=== PATIENT | male | born 1975 | race Caucasian/White ===

== ENCOUNTER 2018-03-01 08:17 | Emergency (ER) | payer OTHER ==
[~2018-03-01] VITALS: Ht 175.3 cm; Wt 161.3 kg
[~2018-03-01 08:17] MED LIST: NO HOME MEDS
[2018-03-01 08:19] VITALS: BP 147/84
[2018-03-01] MEDS ORDERED: HYDR-565 PO (08:38)
== END 2018-03-01 11:45 | disposition home or self-care (01) ==
LOC: ER 08:17
DX: M25.561 Pain in right knee (principal); Z79.899 Other long term (current) drug therapy; X50.1XXA Overexertion from prolonged static or awkward postures, initial encounter; Y93.89 Activity, other specified; Y92.59 Other trade areas as the place of occurrence of the external cause; Y99.8 Other external cause status
CPT/HCPCS: 29505; 73564; 73700; 99284

== ENCOUNTER 2018-03-10 14:07 | Outpatient (CLI) | payer OTHER ==
[2018-03-10 14:20] VITALS: BP 141/68
== END 2018-03-10 15:12 | disposition home or self-care (01) ==
LOC: ORTHO 14:07
PROVIDERS: ATTEND Nurse Practitioner Family
DX: M25.561 Pain in right knee (principal); F17.200 Nicotine dependence, unspecified, uncomplicated
CPT/HCPCS: 99213

== ENCOUNTER 2019-09-09 07:55 | Outpatient (CLI) | payer OTHER ==
[2019-09-09 08:53] LABS: CLARITY,URINE CLEAR (Clear); COLOR,URINE YELLOW (Yellow); GLUCOSE, URINE NEGATIVE (Neg); KETONES,URINE NEGATIVE (Neg); LEUKOCYTE ESTERASE ,URINE NEGATIVE (Neg); NITRITES, URINE NEGATIVE (Neg); OCCULT BLOOD,URINE NEGATIVE (Neg); PROTEIN,URINE NEGATIVE (Neg); UROBILINOGEN,URINE 0.2 E.U/dL (0.2-1.0)
[2019-09-09 08:54] LABS: UA COLLECTION TYPE CLN CATCH MIDSTREAM
[2019-09-09 09:00] LABS: BASOPHILS % (AUTO) 0.5 % (0-1); EOSINOPHILS # (AUTO) 0.1 X10'3 (0-0.9); EOSINOPHILS % (AUTO) 1.6 % (0-6); HEMATOCRIT 42.5 % (42.0-52.0); HEMOGLOBIN 14.8 g/dl (14.0-17.9); LYMPHOCYTES # (AUTO) 1.6 X10'3 (1.1-4.8); LYMPHOCYTES % (AUTO) 28.7 % (21-51); MEAN CORPUSCULAR HEMOGLOBIN 32.7 PG (27.0-31.0); MEAN CORPUSCULAR HGB CONC 34.7 g/dL (33.0-36.5); MEAN CORPUSCULAR VOLUME 94.1 FL (78-98); MEAN PLATELET VOLUME 6.9 FL (7.4-10.4); MONOCYTES # (AUTO) 0.6 X10'3 (0-0.9); MONOCYTES % (AUTO) 11.5 % (2-12); NEUTROPHILS # (AUTO) 3.1 X10'3 (1.8-7.7); NEUTROPHILS % (AUTO) 57.7 % (42-75); PLATELET COUNT 224 X10'3 (140-440); RED BLOOD COUNT 4.52 X10'6 (4.70-6.10); RED CELL DISTRIBUTION WIDTH 12.8 % (11.5-14.5); WHITE BLOOD COUNT 5.4 X10'3 (4.5-11.0)
[2019-09-09 09:19] LABS: ALANINE AMINOTRANSFERASE 34 U/L (12-78); ALBUMIN 3.9 G/DL (3.4-5.0); ALBUMIN/GLOBULIN RATIO 1.1 (1.1-1.5); ALKALINE PHOSPHATASE 76 IU/L (46-116); ANION GAP 3 (8-16); ASPARTATE AMINO TRANSFERASE 26 U/L (10-37); BILIRUBIN,TOTAL 0.7 MG/DL (0.1-1.0); BLOOD UREA NITROGEN 19 MG/DL (7-18); BUN/CREATININE RATIO 20.4 (5.4-32.0); CALCIUM 9.2 MG/DL (8.5-10.1); CHLORIDE 107 MMOL/L (99-107); CHOLESTEROL 147 MG/DL (0-200); CREATININE 0.93 MG/DL (0.60-1.10); GLUCOSE 85 MG/DL (70-104); HDL CHOLESTEROL 49 MG/DL (35-60); LDL CHOLESTEROL 91 MG/DL (50-100); POTASSIUM 4.6 MMOL/L (3.5-5.1); SODIUM 144 MMOL/L (135-145); TOTAL CARBON DIOXIDE 33.9 MMOL/L (24-32); TOTAL PROTEIN 7.4 G/DL (6.4-8.2); TRIGLYCERIDES 48 MG/DL (20-135); eGFR 89 ML/MIN
== END 2019-09-09 23:59 | disposition home or self-care (01) ==
LOC: LAB 07:55
PROVIDERS: ATTEND Family Medicine
DX: Z00.00 Encounter for general adult medical examination without abnormal findings (principal)
CPT/HCPCS: 36415; 80053; 80061; 81003; 84439; 84443; 85025

== ENCOUNTER 2019-09-13 15:48 | Outpatient (CLI) | payer OTHER | END 2019-09-13 23:59 | disposition home or self-care (01) | LOC: RAD 15:48 | PROVIDERS: ATTEND Family Medicine | DX: S83.282A Other tear of lateral meniscus, current injury, left knee, initial encounter (principal); M17.12 Unilateral primary osteoarthritis, left knee; M25.462 Effusion, left knee; X58.XXXA Exposure to other specified factors, initial encounter; Y93.89 Activity, other specified; Y92.89 Other specified places as the place of occurrence of the external cause; Y99.8 Other external cause status | CPT/HCPCS: 73721 ==

== ENCOUNTER 2020-01-04 08:57 | Outpatient (CLI) | payer OTHER | END 2020-01-04 23:59 | disposition home or self-care (01) | LOC: RAD 08:57 | PROVIDERS: ATTEND Orthopaedic Surgery | DX: M17.11 Unilateral primary osteoarthritis, right knee (principal); M25.461 Effusion, right knee | CPT/HCPCS: 73721 ==

== ENCOUNTER 2020-03-27 09:25 | Observation (INO) | payer BC ==
[2020-03-20 17:04] LABS: BASOPHILS % (AUTO) 0.8 % (0-1); EOSINOPHILS # (AUTO) 0.1 X10'3 (0-0.9); EOSINOPHILS % (AUTO) 1.2 % (0-6); LYMPHOCYTES # (AUTO) 1.5 X10'3 (1.1-4.8); LYMPHOCYTES % (AUTO) 32.7 % (21-51); MEAN CORPUSCULAR HEMOGLOBIN 32.9 PG (27.0-31.0); MEAN CORPUSCULAR VOLUME 96.7 FL (78-98); MEAN PLATELET VOLUME 7.4 FL (7.4-10.4); MONOCYTES # (AUTO) 0.5 X10'3 (0-0.9); MONOCYTES % (AUTO) 11.4 % (2-12); NEUTROPHILS # (AUTO) 2.5 X10'3 (1.8-7.7); NEUTROPHILS % (AUTO) 53.9 % (42-75); PRE OP HEMATOCRIT 41.8 % (42.0-52.0); PRE OP HEMOGLOBIN 14.2 g/dL (14.0-17.9); PRE OP PLATELET COUNT 179 X10'3 (140-440); RED BLOOD COUNT 4.33 X10'6 (4.70-6.10)
[2020-03-20 17:14] LABS: PRE OP INR 1.1 INR
[2020-03-20 17:16] LABS: ALBUMIN 3.9 G/DL (3.4-5.0); ALBUMIN/GLOBULIN RATIO 1.2 (1.1-1.5); ALKALINE PHOSPHATASE 81 IU/L (46-116); BLOOD UREA NITROGEN 28 MG/DL (7-18); BUN/CREATININE RATIO 24.3 (5.4-32.0); CALCIUM 8.5 MG/DL (8.5-10.1); CHLORIDE 106 MMOL/L (99-107); CREATININE 1.15 MG/DL (0.60-1.10); PRE OP ALT 73 U/L (30-65); PRE OP ANION GAP 7 (8-16); PRE OP AST 39 U/L (10-37); PRE OP BILIRUB, TOTAL 0.6 MG/DL (0.0-1.0); PRE OP GLUCOSE 82 MG/DL (70-104); PRE OP POTASSIUM 3.8 MMOL/L (3.4-5.1); PRE OP SODIUM 141 MMOL/L (135-145); TOTAL CARBON DIOXIDE 27.9 MMOL/L (24-32); TOTAL PROTEIN 7.2 G/DL (6.4-8.2); eGFR 69 ML/MIN
[2020-03-27] VITALS (17 sets, daily range): BP systolic 89–139; BP diastolic 38–59
[~2020-03-27] VITALS: Ht 177.8 cm; Wt 101.6 kg
[~2020-03-27 09:25] MED LIST changes: +HYDROmorphone 1 mg/ml syringe IV PRN; +HYDROmorphone inj. 0.5 MG/0.5 ML DISP.SYRIN IV PRN; +MESSAGE TO NURSING IV ONE; +acetaminophen 325mg tablet PO ONE; +acetaminophen 325mg tablet PO PRN; +bisacodyl 10mg suppository rectal RC PRN; +ceFAZolin 2gm in dextrose, iso 50 ML IV ONE; +celeCOXIB 100mg capsule PO ONE; +diphenhydrAMINE 25mg capsule PO PRN; +famotidine 20mg tablet PO ONE; +gabapentin 300mg capsule PO ONE; +magnesium hydroxide 30ml (MOM) UD suspension PO PRN; +metoclopramide 5 mg/ml inj IV ONE; +ondansetron/PF 4mg/2ml inj IV PRN; +oxyCODONE SR 10mg (sust. release) tab -2 tabs (20mg) PO ONE; +oxyCODONE/APAP 10/325mg tablet PO PRN; +ringers solution, lacted 1,000 ML IV SCH; +tranexamic acid 1gm/0.7% sal. 100 ML IV ONE; +vancomycin 1,500 MG in NS 300ml IV soln IV ONE
[2020-03-27] MEDS ORDERED: epiNEPHrine 1 mg/ml inj ONE (10:53)
[2020-03-27] MEDS ORDERED: cloNIDine hcl/PF 100mcg/ml inj ONE (10:53)
[2020-03-27] MEDS ORDERED: ketorolac trometh. 30mg/ml inj. ONE (10:53)
[2020-03-27] MEDS ORDERED: ROPIVAcaine 0.5% (5mg/ml) 30ml vial ONE ×2 (10:54→12:25)
[2020-03-27] MEDS ORDERED: vancomycin 1,000mg inj ONE (10:54)
[2020-03-27] MEDS ORDERED: fentaNYL/PF 50MCG/1 ML 2ML syringe ONE (11:44)
[2020-03-27] MEDS ORDERED: MIDAZolam 5mg/5ml vial ONE ×2 (11:45→12:16)
[2020-03-27] MEDS ORDERED: fentaNYL/PF 50MCG/1 ML 2ML syringe IV PRN ×2 (12:30)
[2020-03-27] MEDS ORDERED: ringers solution, lacted 1,000 ML IV SCH (12:30)
[2020-03-27] MEDS ORDERED: ondansetron/PF 4mg/2ml inj IV PRN (12:30)
[2020-03-27] MEDS ORDERED: labetalol 20mg/4ml (5mg/ml) syringe IV PRN (12:30)
[2020-03-27] MEDS ORDERED: morphine 4 MG/ML inj SYRINge IV PRN (12:30)
[2020-03-27] MEDS ORDERED: hydrALAZINE 20mg/ml inj. IV PRN (12:30)
[2020-03-27] MEDS ORDERED: ROPIVAcaine 0.2% (10 MG/5 ML) BOLUS INJECTION ADDCANAL PRN (12:30)
[2020-03-27] MEDS ORDERED: ROPIVAcaine 0.2%/PF PUMP/bolus 550 ML ADDCANAL SCH (12:30)
[2020-03-27] MEDS ORDERED: morphine 2 MG/ML inj. syringe IV PRN (12:30)
--- NOTE | 2020-03-27 15:20 | NUR ---
TRANSFERRED VIA BED WITH OHTF ACCOMPANIED BY MYSELF, REPORT GIVEN. PT AWAKE AND ALERT AND DENIES PAIN AT THIS TIME. L HIP CHITO DRESSING CDI, HIP WRAP, POWDER PACK AND KNEE IMMOBILIZER ON. SPINAL SENSATION AT L2. 18 GAUGE PIV R WRIST PATENT AND RUNNING LR AT 100 ML/HR. SKIN PINK AND WARM, VSS, GOOD CAP REFILL, PERIPHERAL PULSES PRESENT, SCDS ON, RESTING COMFORTABLY. LEFT IN CARE OF DEREJE LEWIS
[2020-03-27] MEDS ORDERED: cefazolin/dext.iso 2gm/50ml 50 ML IV SCH (16:00)
[2020-03-27] MEDS: potassium cl 20mEq in 1/2 NS 1,000 ML IV SCH ×3 (16:55→23:13)
[2020-03-27] MEDS ORDERED: tranexamic acid 1gm/0.7% sal. 100 ML IV ONE (17:00)
--- NOTE | 2020-03-27 18:25 | NUR ---
Patient in room [facility]015. I have received report from DEBBIE Sultana and had the opportunity to ask questions and assume patient care.
[2020-03-27] MEDS: gabapentin 300mg capsule PO SCH (20:06)
[2020-03-27] MEDS: ascorbic acid 500mg tablet PO SCH (20:07)
[2020-03-27] MEDS: cefazolin/dext.iso 2gm/50ml 50 ML IV SCH (20:42)
[2020-03-27] MEDS ORDERED: sennosides 8.6mg tablet PO SCH (21:00)
[2020-03-27] MEDS ORDERED: VANCOMYCIN 1,500MG inj. 1,500 MG in normal saline 500ml IV soln 300 ML IV SCH (22:00)
[2020-03-28 02:00] VITALS: BP 101/49
[2020-03-28] MEDS: potassium cl 20mEq in 1/2 NS 1,000 ML IV SCH (04:48)
[2020-03-28] MEDS: cefazolin/dext.iso 2gm/50ml 50 ML IV SCH (04:49)
[2020-03-28 06:00] VITALS: BP 105/54
--- NOTE | 2020-03-28 06:24 | NUR ---
Problems reprioritized. Patient report given, questions answered & plan of care reviewed with DEBBIE Juan.
[2020-03-28 06:56] LABS: BASOPHILS % (AUTO) 0.4 % (0-1); EOSINOPHILS % (AUTO) 0.3 % (0-6); HEMATOCRIT 37.7 % (42.0-52.0); HEMOGLOBIN 12.9 g/dl (14.0-17.9); LYMPHOCYTES # (AUTO) 1.8 X10'3 (1.1-4.8); LYMPHOCYTES % (AUTO) 20.5 % (21-51); MEAN CORPUSCULAR HEMOGLOBIN 32.7 PG (27.0-31.0); MEAN CORPUSCULAR HGB CONC 34.2 g/dL (33.0-36.5); MEAN CORPUSCULAR VOLUME 95.6 FL (78-98); MEAN PLATELET VOLUME 7.6 FL (7.4-10.4); MONOCYTES # (AUTO) 0.6 X10'3 (0-0.9); MONOCYTES % (AUTO) 6.9 % (2-12); NEUTROPHILS # (AUTO) 6.4 X10'3 (1.8-7.7); NEUTROPHILS % (AUTO) 71.9 % (42-75); PLATELET COUNT 164 X10'3 (140-440); RED BLOOD COUNT 3.94 X10'6 (4.70-6.10); WHITE BLOOD COUNT 8.9 X10'3 (4.5-11.0)
[2020-03-28 07:13] LABS: ANION GAP 5 (8-16); CHLORIDE 106 MMOL/L (99-107); POTASSIUM 3.9 MMOL/L (3.5-5.1); SODIUM 140 MMOL/L (135-145); TOTAL CARBON DIOXIDE 28.7 MMOL/L (24-32)
[2020-03-28] MEDS ORDERED: multivitamins, therapeutics tablet PO SCH (08:00)
[2020-03-28] MEDS: ascorbic acid 500mg tablet PO SCH (08:05)
[2020-03-28] MEDS: gabapentin 300mg capsule PO SCH (08:05)
[2020-03-28] MEDS ORDERED: aspirin 325mg tablet PO SCH (08:30)
--- NOTE | 2020-03-28 13:14 | NUR ---
LATE ENTRY: EDUCATED PATIENT AND REGARDING CHITO DRESSING CARE AND TO TAKE OFF IN 5-7 DAYS WHEN BATTERIES RUN OUT, ON-Q DISCONNECT AFTER EMPTY AND TO PLACE A BANDAGE. SHOWERING IS ONLY AFTER THE ON-Q IS DISCONNECTED FROM THE IV SITE. SENT THE EDUCATION HOME WITH THEM AND TWO DRESSING CHANGES.
[2020-03-28] MEDS ORDERED: celeCOXIB 100mg capsule PO SCH (20:00)
== END 2020-03-28 09:35 | disposition home or self-care (01) ==
LOC: PAS 09:25 → ORTHO 4S 16:05
PROVIDERS: ADMIT Orthopaedic Surgery; ATTEND Orthopaedic Surgery
DX: Z03.818 Encounter for observation for suspected exposure to other biological agents ruled out (principal); M17.11 Unilateral primary osteoarthritis, right knee; E66.01 Morbid (severe) obesity due to excess calories; Z87.891 Personal history of nicotine dependence; Z68.32 Body mass index [BMI] 32.0-32.9, adult
CPT/HCPCS: 27447; 36415; 73560; 80051; 80053; 82948; 85025; 85610; 85730; 86885; 86900; 86901; 87081; 93005; 96365; 96366; 96367; 97116; 97161; 97530; A6454; C1713; C1776; G0378; J0171; J0735; J1885; J2250; J2795; J3010; J3370; J7040; J7120; U0003; A4215; A7000; J3480